=== PATIENT | male | born 1975 | race Hispanic/Latino ===

== ENCOUNTER 2017-10-31 13:42 | Inpatient (IN) | payer OTHER ==
[2017-10-31] MEDS ORDERED: Albuterol-Ipratrop 3 mg / 0.5 (3 ml) UD INH STA (14:55)
--- NOTE | 2017-10-31 14:55 | RAD ---
PROCEDURE: CHEST RADIOGRAPH, 1 VIEW HISTORY: dyspnea COMPARISON: None available. FINDINGS: LUNGS: Clear. PLEURA: No pneumothorax or pleural fluid seen. CARDIOVASCULAR: Normal. OSSEOUS STRUCTURES: No significant abnormalities. VISUALIZED UPPER ABDOMEN: Normal. OTHER FINDINGS: None. IMPRESSION: No active disease.
[2017-10-31 14:56] LABS: BASO # 0.1 K/uL (0.0-0.2); BASO % 1.3 % (0.0-2.0); EOS # 0.1 K/uL (0.0-0.7); EOS % 0.9 % (0.0-4.0); HEMATOCRIT 48.1 % (35.0-51.0); LYMPH # 2.1 K/uL (1.0-4.3); LYMPH % 31.6 % (20.0-40.0); MEAN CELL VOLUME 99.4 fl (80.0-94.0); MEAN CORPUSCULAR HEMOGLOBIN 32.7 pg (27.0-31.0); MEAN CORPUSCULAR HGB CONC 32.9 g/dL (33.0-37.0); MEAN PLATELET VOLUME 9.6 fl (7.2-11.7); MONO # 0.4 K/uL (0.0-0.8); MONO % 6.8 % (0.0-10.0); NEUT # 3.9 K/uL (1.8-7.0); NEUT % 59.4 % (50.0-75.0); NRBC % 0.1 % (0.0-0.0); RED CELL DISTRIBUTION WIDTH 15.8 % (11.5-14.5); WHITE BLOOD COUNT 6.5 K/uL (4.8-10.8)
[2017-10-31 14:57] LABS: ABG ALLEN TEST YES; ARTERIAL BLOOD GAS HCO3 28.7 mmol/L (21-28); ARTERIAL BLOOD GAS O2 CAPACITY 21.1 mL/dL (16-24); ARTERIAL BLOOD GAS O2 CONTENT 15.6 ML/dL (15-23); ARTERIAL BLOOD GAS PH 7.39 (7.35-7.45); ARTERIAL BLOOD GAS PO2 36 mm/Hg (80-100); ARTERIAL BLOOD HGB O2 SAT 70.3 % (95.0-98.0); CARBOXYHEMOGLOBIN 2.1 % (0.5-1.5); HHB 24.8 % (0.0-5.0); METHEMOGLOBIN 2.9 % (0.0-3.0)
--- NOTE | 2017-10-31 14:59 | ED PDOC ---
HPI: General Adult Time Seen by Provider: 10/31/17 14:05 Chief Complaint (Nursing): Shortness Of Breath Chief Complaint (Provider): Shortness Of Breath History Per: Patient, Family History/Exam Limitations: no limitations Onset/Duration Of Symptoms: Other (x months) Current Symptoms Are (Timing): Still Present Additional Complaint(s): Kaden is a 42 year old male with a past medical history of down syndrome, who is accompanied by father, who presents to the emergency department complaining of sleeping problems for several months. Patient states he snores loudly as well as difficulty breathing. Reports sleeping at night as well as morning. Reports sore throat and left ear pain (onset unclear). Denies chest pain, cough, fever and neck pain. Reports no vomiting or diarrhea, and is able to eat and drink as well as doing daily activities. PMD: Clive Sanchez Past Medical History Reviewed: Historical Data, Nursing Documentation, Vital Signs Vital Signs: Last Vital Signs Temp 97.9 F 11/02/17 08:26 Pulse 84 11/02/17 08:26 Resp 20 11/02/17 08:26 BP 113/72 11/02/17 08:26 Pulse Ox 95 11/02/17 08:26 - Medical History PMH: Anemia, Hypercholesterolemia, Hyperthyroidism Other PMH: Down syndrome - Surgical History Surgical History: No Surg Hx - Family History Family History: States: No Known Family Hx - Social History Current smoker - smoking cessation education provided: No Alcohol: None - Home Medications Home Medications: Ambulatory Orders Medication Instructions Recorded Atorvastatin [Lipitor] 10 mg PO DAILY 10/31/17 Fenofibrate,Micronized 134 mg PO DAILY 10/31/17 [Fenofibrate] Icosapent Ethyl [Vascepa] 2 gm PO DAILY 10/31/17 Levothyroxine [Synthroid] 175 mcg PO DAILY 10/31/17 - Allergies Allergies/Adverse Reactions: Allergies Allergy/AdvReac Type Severity Reaction Status Date / Time No Known Allergies Allergy Verified 10/31/17 13:53 Review of Systems ROS Statement: Except As Marked, All Systems Reviewed And Found Negative Constitutional: Negative for: Fever ENT: Positive for: Ear Pain (Left), Throat Pain Cardiovascular: Negative for: Chest Pain Respiratory: Negative for: Cough Musculoskeletal: Negative for: Neck Pain Physical Exam - Reviewed Nursing Documentation Reviewed: Yes Vital Signs Reviewed: Yes - Physical Exam Appears: Positive for: No Acute Distress Head Exam: Positive for: ATRAUMATIC, NORMOCEPHALIC Skin: Positive for: Warm, Dry Eye Exam: Positive for: Normal appearance, EOMI ENT: Positive for: Pharyngeal Erythema, Other (Long tongue noted) Neck: Positive for: Painless ROM, Supple Cardiovascular/Chest: Positive for: Regular Rate, Rhythm. Negative for: Tachycardia Respiratory: Positive for: Normal Breath Sounds. Negative for: Accessory Muscle Use, Respiratory Distress Gastrointestinal/Abdominal: Positive for: Soft. Negative for: Tenderness Extremity: Positive for: Normal ROM Neurologic/Psych: Positive for: Alert, Oriented - Laboratory Results Result Diagrams: 11/02/17 04:20 11/02/17 04:20 - ECG O2 Sat by Pulse Oximetry: 92 Medical Decision Making Medical Decision Making: Time: 14:37 Impression: COPD and sleep apnea r/o CHF Plan: - Arterial Blood Gas - EKG - B-Type Natriuretic Peptide - BMP - Troponin I - CBC - Chest X-Ray - Rapid Strep Time: 14:54 Chest X-Ray FINDINGS: LUNGS: Clear. PLEURA: No pneumothorax or pleural fluid seen. CARDIOVASCULAR: Normal. OSSEOUS STRUCTURES: No significant abnormalities. VISUALIZED UPPER ABDOMEN: Normal. OTHER FINDINGS: None. IMPRESSION: No active disease. Time: 15:00 Patient to be signed out to Dr. Holley Scribe Attestation: Documented by Dante Moncada, acting as a scribe for Chris Tejeda MD. Provider Scribe Attestation: All medical record entries made by the Scribe were at my direction and personally dictated by me. I have reviewed the chart and agree that the record accurately reflects my personal performance of the history, physical exam, medical decision making, and the department course for this patient. I have also personally directed, reviewed, and agree with the discharge instructions and disposition. Disposition - Clinical Impression Clinical Impression: COPD (chronic obstructive pulmonary disease), RHYS (obstructive sleep apnea) - Patient ED Disposition Is Patient to be Admitted: Transfer of Care Counseled Patient/Family Regarding: Studies Performed, Diagnosis - Disposition Disposition: Transfer of Care Disposition Time: 15:00 Condition: FAIR Patient Signed Over To: Joaquin Holley
[2017-10-31 15:01] LABS: CALCIUM 8.9 mg/dL (8.4-10.2); CARBON DIOXIDE 25 mmol/L (22-30); CHLORIDE 103 mmol/L (98-107); GFR AFRICAN-AMERICAN > 60; GLUCOSE,RANDOM 74 mg/dL (75-110); SODIUM 139 mmol/l (132-148)
[2017-10-31] MEDS ORDERED: Albuterol-Ipratrop 3 mg / 0.5 (3 ml) UD ONE (15:11)
--- NOTE | 2017-10-31 15:19 | ED PDOC ---
- Laboratory Results Result Diagrams: 10/31/17 14:47 10/31/17 14:47 - ECG O2 Sat by Pulse Oximetry: 92 (RA) Medical Decision Making Medical Decision Making: Time: 15:00 Patient signed out to me by Dr. Tejeda, pending re-evaluation. Disposition - Clinical Impression Clinical Impression: COPD (chronic obstructive pulmonary disease) - POA Present On Arrival: None - Disposition Disposition: Hospitalized as Observation Patient Disposition Time: 15:56 Condition: FAIR Forms: [employer] (Lao)
[2017-10-31 15:20] LABS: BLOOD UREA NITROGEN 19 mg/dl (9-20)
[2017-10-31 15:21] LABS: POTASSIUM 5.9 MMOL/L (3.6-5.0)
[2017-10-31 15:41] LABS: ABG ALLEN TEST YES; ARTERIAL BLOOD GAS O2 CAPACITY 20.8 mL/dL (16-24); ARTERIAL BLOOD GAS O2 CONTENT 20.7 ML/dL (15-23); ARTERIAL BLOOD GAS PH 7.39 (7.35-7.45); ARTERIAL BLOOD GAS PO2 77 mm/Hg (80-100); ARTERIAL BLOOD HGB O2 SAT 94.2 % (95.0-98.0); CARBOXYHEMOGLOBIN 3.2 % (0.5-1.5); HHB 0.7 % (0.0-5.0); METHEMOGLOBIN 1.9 % (0.0-3.0)
[2017-10-31 16:21] LABS: ALB/GLOB RATIO 1.3 (1.0-2.1); ALKALINE PHOSPHATASE 59 U/L (38-126); ALT/SGPT 58 U/L (21-72); AST/SGOT 81 U/L (17-59); BILIRUBIN,TOTAL 0.4 mg/dl (0.2-1.3); BLOOD UREA NITROGEN 18 mg/dl (9-20); CALCIUM 8.7 mg/dL (8.4-10.2); CARBON DIOXIDE 30 mmol/L (22-30); CHLORIDE 102 mmol/L (98-107); GFR AFRICAN-AMERICAN > 60; GLUCOSE,RANDOM 83 mg/dL (75-110); POTASSIUM 4.3 MMOL/L (3.6-5.0); SODIUM 140 mmol/l (132-148); TOTAL PROTEIN 7.7 G/DL (6.3-8.2)
[2017-10-31] MEDS ORDERED: Albuterol-Ipratrop 3 mg / 0.5 (3 ml) UD INH PRN (21:03)
[2017-11-01] MEDS: Albuterol-Ipratrop 3 mg / 0.5 (3 ml) UD INH SCH ×4 (01:03→19:30)
[2017-11-01] MEDS ORDERED: Lactulose 10 gm/15 ml Syrup PO PRN (05:15)
[2017-11-01 06:09] LABS: HEMATOCRIT 44.4 % (35.0-51.0); MEAN CELL VOLUME 99.4 fl (80.0-94.0); MEAN CORPUSCULAR HGB CONC 33.2 g/dL (33.0-37.0); RED CELL DISTRIBUTION WIDTH 15.8 % (11.5-14.5); WHITE BLOOD COUNT 12.8 K/uL (4.8-10.8)
[2017-11-01 06:14] LABS: ALB/GLOB RATIO 1.3 (1.0-2.1); ALKALINE PHOSPHATASE 57 U/L (38-126); ALT/SGPT 57 U/L (21-72); AST/SGOT 83 U/L (17-59); BILIRUBIN,TOTAL 0.5 mg/dl (0.2-1.3); BLOOD UREA NITROGEN 17 mg/dl (9-20); CALCIUM 9.2 mg/dL (8.4-10.2); CARBON DIOXIDE 27 mmol/L (22-30); CHLORIDE 105 mmol/L (98-107); CHOLESTEROL 277 mg/dL (0-199); GFR AFRICAN-AMERICAN > 60; GLUCOSE,RANDOM 101 mg/dL (75-110); POTASSIUM 4.1 MMOL/L (3.6-5.0); SODIUM 134 mmol/l (132-148); TOTAL PROTEIN 8.1 G/DL (6.3-8.2)
[2017-11-01] MEDS ORDERED: Levothyroxine 175 MCG TAB PO SCH (06:30)
--- NOTE | 2017-11-01 08:04 | CT ---
PROCEDURE: CT NECK WITHOUT CONTRAST HISTORY: snoring obstruction? COMPARISON: None. TECHNIQUE: CT of the neck without intravenous contrast. Coronal and sagittal reformats generated. Radiation dose: DLP mGy-cm This CT exam was performed using one or more of the following dose reduction techniques: Automated exposure control, adjustment of the mA and/or kV according to patient size, and/or use of iterative reconstruction technique. FINDINGS: NASOPHARYNX: Soft tissue swelling, fullness within the nasopharynx. SUPRAHYOID NECK: Oral pharyngeal soft tissue swelling, edema producing narrowing of the oropharynx this is primarily related to edema about the soft palate INFRAHYOID NECK: Unremarkable larynx, hypopharynx, and supraglottic space. Vocal cords intact. MASS: None. GLANDS: Parotid and submandibular glands unremarkable. Normal size thyroid gland, without nodule. LYMPH NODES: Enlarged cervical and submandibular lymph nodes the etiology of which is uncertain, the preponderance of lymph nodes measure 1 cm or less. CERVICAL SPINE: Proliferative hypertrophic bar formation producing canal stenosis C4-5 and to lesser extent C5-6 OTHER FINDINGS: Dilatation of the proximal esophagus as visualized etiology of which is uncertain. IMPRESSION: Nasopharyngeal, oropharyngeal narrowing, soft tissue swelling which is diffuse.
[2017-11-01] MEDS: Enoxaparin 40 mg Syringe SC SCH (09:13)
[2017-11-01] MEDS ORDERED: methylPREDNISolone 60 MG in Sodium Chloride 0.9% 50 ML IV SCH (10:00)
[2017-11-01] MEDS: Omega-3-Acid Ethyl Esters 1 GM Cap PO SCH (12:43)
--- NOTE | 2017-11-01 15:20 | HP ---
CHIEF COMPLAINT: Shortness of breath and grunting noise from the nose. HISTORY OF PRESENT ILLNESS: This is a 42-year-old male, known case of Down syndrome, who was having sleeping problem and also having shortness of breath and family also complaining of very loud snoring. So, the patient was brought to the emergency room and was admitted for further management. REVIEW OF SYSTEMS: Positive for sore throat, ear pain, shortness of breath, and snoring. Review of systems otherwise is negative for headache, dizziness, syncope, loss of consciousness, chest pain, nausea, vomiting, diarrhea, constipation, or any new joint of extremity pain. Review of systems of all other organ systems is unremarkable. PAST MEDICAL HISTORY: Significant for Down syndrome, elevated cholesterol, anemia, hypothyroidism, morbid obesity. PAST SURGICAL HISTORY: Unremarkable. PERSONAL HISTORY: The patient is currently nonsmoker, nondrinker. No substance abuse. MEDICATIONS: The patient is not on any medications. ALLERGIES: THE PATIENT IS NOT ALLERGIC TO ANY MEDICATIONS. FAMILY HISTORY: Noncontributory. PHYSICAL EXAMINATION: GENERAL: Well-built, well-nourished, morbidly obese 42-year-old male, in no acute distress. VITAL SIGNS: Temperature , pulse 82, respirations 18, blood pressure 105/55, and saturation 94%. HEENT: Pupils reacting to light. No JVD. No thyromegaly. No lymphadenopathy. No nystagmus. Normocephalic, atraumatic skull. HEART: S1 and S2, normal and regular. No significant murmur, gallop, or rub is heard. LUNGS: Exam shows good bilateral air exchange. No rales or rhonchi, but the patient does have prolonged expirations. ABDOMEN: Soft, nontender. No organomegaly. No fluid. Bowel sounds are positive. EXTREMITIES: No edema. No calf swelling. No tenderness. No acute ischemia. CENTRAL NERVOUS SYSTEM: Essentially unchanged and there is no sign of any acute gross focal motor or sensory neurological deficits. DIAGNOSTIC DATA: Available diagnostic data reviewed. WBC 12.8, hemoglobin 14.7, hematocrit 44, platelet 266. ABG shows pH 7.39, pCO2 of 50, pO2 of 77, saturation 99.3%. On admission, the patient's ABG showed pH 7.39, pCO2 of 54, pO2 of 36, saturation was 74%. Sodium 134, potassium 4.1, chloride 95, bicarb 27, BUN 17, and creatinine 1.1. SMA-12 is unremarkable. The patient's cholesterol is 277 with LDL cholesterol of 171. Also, the patient's TSH is 83.10. ADMITTING IMPRESSION: Chronic obstructive pulmonary disease with exacerbation; morbid obesity; obesity-hypoventilation syndrome; sleep apnea; hypothyroidism, uncontrolled; elevated cholesterol. Telemetry monitoring does not reveal significant arrhythmias. PLAN: As ordered. Tanner Rodriguez MD
[2017-11-02] MEDS: Albuterol-Ipratrop 3 mg / 0.5 (3 ml) UD INH SCH ×4 (01:14→19:42)
[2017-11-02 05:49] LABS: HEMATOCRIT 44.4 % (35.0-51.0); MEAN CELL VOLUME 99.2 fl (80.0-94.0); MEAN CORPUSCULAR HEMOGLOBIN 32.8 pg (27.0-31.0); MEAN CORPUSCULAR HGB CONC 33.1 g/dL (33.0-37.0); RED CELL DISTRIBUTION WIDTH 15.5 % (11.5-14.5); WHITE BLOOD COUNT 12.8 K/uL (4.8-10.8)
[2017-11-02 06:24] LABS: ALB/GLOB RATIO 1.4 (1.0-2.1); ALKALINE PHOSPHATASE 58 U/L (38-126); ALT/SGPT 74 U/L (21-72); AST/SGOT 116 U/L (17-59); BILIRUBIN,TOTAL 0.5 mg/dl (0.2-1.3); BLOOD UREA NITROGEN 23 mg/dl (9-20); CALCIUM 9.5 mg/dL (8.4-10.2); CARBON DIOXIDE 31 mmol/L (22-30); CHLORIDE 99 mmol/L (98-107); GFR AFRICAN-AMERICAN > 60; GLUCOSE,RANDOM 118 mg/dL (75-110); POTASSIUM 4.3 MMOL/L (3.6-5.0); SODIUM 141 mmol/l (132-148); TOTAL PROTEIN 8.6 G/DL (6.3-8.2)
[2017-11-02] MEDS ORDERED: Levothyroxine 25 MCG TAB PO SCH (06:30)
[2017-11-02] MEDS: Levothyroxine 200 MCG TAB PO SCH (08:30)
[2017-11-02] MEDS: Enoxaparin 40 mg Syringe SC SCH (08:30)
[2017-11-02] MEDS: Omega-3-Acid Ethyl Esters 1 GM Cap PO SCH (08:31)
--- NOTE | 2017-11-02 10:55 | CP.PCM.PN ---
Subjective - Date & Time of Evaluation Date of Evaluation: 11/02/17 Time of Evaluation: 07:40 - Subjective Subjective: Patient seen and examined bedside with Dr Rodriguez. Patient with down syndrome, noticed with some nasal obstruction. no wheezing , SOB. no overnight events. ENT consult placed to evaluate Upper respiratory symptoms. Objective - Vital Signs/Intake and Output Vital Signs (last 24 hours): Temp Pulse Resp BP Pulse Ox 97.9 F 84 20 113/72 92 L 11/02/17 08:26 11/02/17 09:00 11/02/17 08:26 11/02/17 08:26 11/02/17 09:21 - Medications Medications: Current Medications Albuterol/Ipratropium (Duoneb 3 Mg/0.5 Mg (3 Ml) Ud) 3 ml INH RQ6 MELISSA Last Admin: 11/02/17 07:58 Dose: 3 ml Albuterol/Ipratropium (Duoneb 3 Mg/0.5 Mg (3 Ml) Ud) 3 ml INH RQ4 PRN PRN Reason: Shortness of Breath Last Admin: 10/31/17 22:05 Dose: 3 ml Atorvastatin Calcium (Lipitor) 10 mg PO DAILY [facility] Last Admin: 11/02/17 08:30 Dose: 10 mg Enoxaparin Sodium (Lovenox) 40 mg SC DAILY MELISSA PRN Reason: Protocol Last Admin: 11/02/17 08:30 Dose: 40 mg Fenofibrate (Tricor) 145 mg PO DAILY MELISSA Last Admin: 11/02/17 08:31 Dose: 145 mg Lactulose (Enulose) 10 gm PO DAILY PRN PRN Reason: Constipation Levothyroxine Sodium (Synthroid) 200 mcg PO DAILY MELISSA Last Admin: 11/02/17 08:30 Dose: 200 mcg Liothyronine Sodium (Cytomel) 5 mcg PO DAILY MELISSA Last Admin: 11/02/17 08:34 Dose: 5 mcg Methylprednisolone (Solu-Medrol) 60 mg IV Q6 MELISSA Last Admin: 11/02/17 09:11 Dose: 60 mg [id number]-[id number] Ethyl Esters (Lovaza) 2 gm PO DAILY MELISSA Last Admin: 11/02/17 08:31 Dose: 2 gm - Labs Labs: 11/02/17 04:20 11/02/17 04:20 - Constitutional Appears: Non-toxic, No Acute Distress - Head Exam Head Exam: ATRAUMATIC, NORMOCEPHALIC - Eye Exam Eye Exam: Normal appearance - ENT Exam ENT Exam: Mucous Membranes Moist, Normal Oropharynx - Neck Exam Neck Exam: Normal Inspection - Respiratory Exam Respiratory Exam: Decreased Breath Sounds (B/L bibasal). absent: Rales, Wheezes - Cardiovascular Exam Cardiovascular Exam: REGULAR RHYTHM, +S1, +S2 - GI/Abdominal Exam GI & Abdominal Exam: Soft, Normal Bowel Sounds. absent: Tenderness - Extremities Exam Extremities Exam: Normal Inspection. absent: Calf Tenderness, Pedal Edema - Neurological Exam Neurological Exam: Alert, Awake - Psychiatric Exam Psychiatric exam: Normal Affect Assessment and Plan - Assessment and Plan (Free Text) Plan: Assessment/Plan 1) COPD -duoneb -solumedrol 40 mg IV q8h 2) RHYS -snoring,down syndrome neck -ENT consult suggested 3) Hypothyroidism -uncontrolled -levothyroxine 200 mcg daily 4) DVT Prophylaxis -lovenox 40 mg sc daily
[2017-11-02] MEDS ORDERED: Piperacillin/Tazobact 3.375 GM in Sodium Chloride 0.9% 100 ML IVPB SCH (12:00)
[2017-11-02] MEDS: MethylPREDNISolone 40 mg Vial IV SCH (17:51)
--- NOTE | 2017-11-02 19:29 | OP ---
PROCEDURE DATE: 11/02/2017 PREOPERATIVE DIAGNOSIS: Possible airway obstruction. POSTOPERATIVE DIAGNOSIS: Possible airway obstruction. PROCEDURE: Flexible laryngoscopy. SIGNIFICANT FINDINGS: No masses, no lesions, no erythema, no edema. DESCRIPTION OF PROCEDURE: Patient was placed in seated position. The nose was injected using Afrin. Flexible laryngoscope was inserted into the nasal cavity, past the nasopharynx, oropharynx, and hypopharynx. The pharyngeal wall, base of tongue, vallecula, epiglottis, AE fold, false cords, true cords, arytenoids, and pyriform sinuses were brought into view. No masses, no lesions, no erythema, no edema were noted. Redundant pharyngeal mucosa was noted. The scope was removed. Patient tolerated the procedure well. Baljit Hendrickson MD
[2017-11-03] MEDS: Albuterol-Ipratrop 3 mg / 0.5 (3 ml) UD INH SCH ×4 (01:04→19:43)
[2017-11-03] MEDS: MethylPREDNISolone 40 mg Vial IV SCH ×3 (01:45→17:26)
[2017-11-03 05:55] LABS: HEMATOCRIT 45.5 % (35.0-51.0); MEAN CELL VOLUME 98.9 fl (80.0-94.0); MEAN CORPUSCULAR HEMOGLOBIN 32.7 pg (27.0-31.0); MEAN CORPUSCULAR HGB CONC 33.1 g/dL (33.0-37.0); RED CELL DISTRIBUTION WIDTH 15.5 % (11.5-14.5); WHITE BLOOD COUNT 16.7 K/uL (4.8-10.8)
[2017-11-03 06:07] LABS: BLOOD UREA NITROGEN 27 mg/dl (9-20); CALCIUM 9.7 mg/dL (8.4-10.2); CARBON DIOXIDE 33 mmol/L (22-30); CHLORIDE 96 mmol/L (98-107); GFR AFRICAN-AMERICAN > 60; GLUCOSE,RANDOM 107 mg/dL (75-110); POTASSIUM 4.3 MMOL/L (3.6-5.0); SODIUM 140 mmol/l (132-148)
[2017-11-03] MEDS: Enoxaparin 40 mg Syringe SC SCH (08:57)
--- NOTE | 2017-11-03 08:59 | CP.PCM.PN ---
Subjective - Date & Time of Evaluation Date of Evaluation: 11/03/17 Time of Evaluation: 07:30 - Subjective Subjective: Patient seen and examined bedside with Dr Rodriguez. Patient with down syndrome, more improved of nasal congestion today. no wheezing appreciated, breathing w/o difficulty. no overnight events. ENT cleared pt. steroid reduced dose. possible discharged tomorrow. Objective - Vital Signs/Intake and Output Vital Signs (last 24 hours): Temp Pulse Resp BP Pulse Ox 98.1 F 83 18 108/69 93 L 11/03/17 08:00 11/03/17 08:00 11/03/17 08:00 11/03/17 08:00 11/03/17 08:00 Intake and Output: 11/03/17 11/03/17 06:59 18:59 Intake Total 1500 Balance 1500 - Medications Medications: Current Medications Albuterol/Ipratropium (Duoneb 3 Mg/0.5 Mg (3 Ml) Ud) 3 ml INH RQ6 MELISSA Last Admin: 11/03/17 07:56 Dose: 3 ml Albuterol/Ipratropium (Duoneb 3 Mg/0.5 Mg (3 Ml) Ud) 3 ml INH RQ4 PRN PRN Reason: Shortness of Breath Last Admin: 10/31/17 22:05 Dose: 3 ml Atorvastatin Calcium (Lipitor) 10 mg PO DAILY [facility] Last Admin: 11/02/17 08:30 Dose: 10 mg Enoxaparin Sodium (Lovenox) 40 mg SC DAILY MELISSA PRN Reason: Protocol Last Admin: 11/02/17 08:30 Dose: 40 mg Fenofibrate (Tricor) 145 mg PO DAILY MELISSA Last Admin: 11/02/17 08:31 Dose: 145 mg Lactulose (Enulose) 10 gm PO DAILY PRN PRN Reason: Constipation Levothyroxine Sodium (Synthroid) 200 mcg PO DAILY MELISSA Last Admin: 11/02/17 08:30 Dose: 200 mcg Liothyronine Sodium (Cytomel) 5 mcg PO DAILY MELISSA Last Admin: 11/02/17 08:34 Dose: 5 mcg Methylprednisolone (Solu-Medrol) 40 mg IV Q8 MELISSA Last Admin: 11/03/17 01:45 Dose: 40 mg Yjpza-6-Jdwf Ethyl Esters (Lovaza) 2 gm PO DAILY MELISSA Last Admin: 11/02/17 08:31 Dose: 2 gm - Labs Labs: 11/03/17 05:00 11/03/17 05:00 - Constitutional Appears: Non-toxic, No Acute Distress - Head Exam Head Exam: ATRAUMATIC, NORMOCEPHALIC - Eye Exam Eye Exam: Normal appearance - ENT Exam ENT Exam: Mucous Membranes Moist Additional comments: B/L ears with cerumen and partial cerumen impaction, no auditive conduct normal , TM not completed seen but with normal color and light reflex - Neck Exam Neck Exam: Full ROM, Normal Inspection - Respiratory Exam Respiratory Exam: Clear to Ausculation Bilateral. absent: Rales, Rhonchi, Wheezes - Cardiovascular Exam Cardiovascular Exam: REGULAR RHYTHM, +S1, +S2 - GI/Abdominal Exam GI & Abdominal Exam: Soft, Normal Bowel Sounds. absent: Tenderness - Extremities Exam Extremities Exam: Normal Inspection. absent: Pedal Edema - Neurological Exam Neurological Exam: Alert, Awake - Psychiatric Exam Psychiatric exam: Normal Affect - Skin Skin Exam: Intact Assessment and Plan - Assessment and Plan (Free Text) Plan: Assessment/Plan 1) COPD -duoneb -solumedrol reduced dose 20 mg IV q8h -reducing dose and possible dc tomorrow 2) RHYS -snoring,down syndrome neck -ENT consult appreciated. pt cleared 3) Hypothyroidism -uncontrolled -levothyroxine 200 mcg daily 4) DVT Prophylaxis -lovenox 40 mg sc daily
[2017-11-03] MEDS: Omega-3-Acid Ethyl Esters 1 GM Cap PO SCH (09:02)
[2017-11-03] MEDS: Levothyroxine 200 MCG TAB PO SCH (09:11)
--- NOTE | 2017-11-03 09:17 | CARD ---
APPROVED REPORT EKG Measurement Heart [id number] <Conclusion> Normal sinus rhythm Possible Left atrial enlargement Borderline ECG
[2017-11-03] MEDS: Petrolatum UD PAK TOP SCH ×3 (17:27→22:38)
[2017-11-04] MEDS: MethylPREDNISolone 40 mg Vial IV SCH ×2 (00:17→09:36)
[2017-11-04 00:23] VITALS: RESP 18
[2017-11-04] MEDS: Albuterol-Ipratrop 3 mg / 0.5 (3 ml) UD INH SCH ×2 (01:37→07:54)
[2017-11-04 06:51] LABS: HEMATOCRIT 48.7 % (35.0-51.0); MEAN CELL VOLUME 98.7 fl (80.0-94.0); MEAN CORPUSCULAR HEMOGLOBIN 32.8 pg (27.0-31.0); MEAN CORPUSCULAR HGB CONC 33.2 g/dL (33.0-37.0); RED CELL DISTRIBUTION WIDTH 15.4 % (11.5-14.5); WHITE BLOOD COUNT 20.1 K/uL (4.8-10.8)
[2017-11-04 06:58] LABS: BLOOD UREA NITROGEN 29 mg/dl (9-20); CALCIUM 9.6 mg/dL (8.4-10.2); CARBON DIOXIDE 32 mmol/L (22-30); CHLORIDE 97 mmol/L (98-107); GFR AFRICAN-AMERICAN > 60; GLUCOSE,RANDOM 107 mg/dL (75-110); POTASSIUM 4.7 MMOL/L (3.6-5.0); SODIUM 140 mmol/l (132-148)
[2017-11-04 08:14] VITALS: BP 112/73; PULSE 80; TEMP 98.4; O2SAT 93
[2017-11-04] MEDS: Omega-3-Acid Ethyl Esters 1 GM Cap PO SCH (09:28)
[2017-11-04] MEDS: Enoxaparin 40 mg Syringe SC SCH (09:29)
[2017-11-04] MEDS: Levothyroxine 200 MCG TAB PO SCH (09:29)
[2017-11-04] MEDS: Petrolatum UD PAK TOP SCH (09:30)
--- NOTE | 2017-11-04 13:18 | CP.PCM.DIS ---
Provider - Provider Date of Admission: 11/02/17 14:23 Attending physician: Tanner Rodriguez MD Time Spent in preparation of Discharge (in minutes): 30 Hospital Course - Lab Results Lab Results: Micro Results 10/31/17 14:57 Throat Group A Strep Throat Culture - Final NO BETA STREP GROUP A ISOLATED. Most Recent Lab Values WBC 20.1 K/uL (4.8-10.8) H 11/04/17 05:50 RBC 4.93 Mil/uL (4.40-5.90) 11/04/17 05:50 Hgb 16.2 g/dL (12.0-18.0) 11/04/17 05:50 Hct 48.7 % (35.0-51.0) 11/04/17 05:50 MCV 98.7 fl (80.0-94.0) H 11/04/17 05:50 MCH 32.8 pg (27.0-31.0) H 11/04/17 05:50 MCHC 33.2 g/dL (33.0-37.0) 11/04/17 05:50 RDW 15.4 % (11.5-14.5) H 11/04/17 05:50 Plt Count 296 K/uL (130-400) 11/04/17 05:50 MPV 9.6 fl (7.2-11.7) 10/31/17 14:47 Neut % (Auto) 59.4 % (50.0-75.0) 10/31/17 14:47 Lymph % (Auto) 31.6 % (20.0-40.0) 10/31/17 14:47 Barrow % (Auto) 6.8 % (0.0-10.0) 10/31/17 14:47 Eos % (Auto) 0.9 % (0.0-4.0) 10/31/17 14:47 Baso % (Auto) 1.3 % (0.0-2.0) 10/31/17 14:47 Neut # 3.9 K/uL (1.8-7.0) 10/31/17 14:47 Lymph # 2.1 K/uL (1.0-4.3) 10/31/17 14:47 Barrow # 0.4 K/uL (0.0-0.8) 10/31/17 14:47 Eos # 0.1 K/uL (0.0-0.7) 10/31/17 14:47 Baso # 0.1 K/uL (0.0-0.2) 10/31/17 14:47 pCO2 50 mm/Hg (35-45) H 10/31/17 15:15 pO2 77 mm/Hg (80-100) L 10/31/17 15:15 HCO3 28.0 mmol/L (21-28) 10/31/17 15:15 ABG pH 7.39 (7.35-7.45) 10/31/17 15:15 ABG Total CO2 31.8 mmol/L (22-28) H 10/31/17 15:15 ABG O2 Saturation 99.3 % (95-98) H 10/31/17 15:15 ABG O2 Content 20.7 ML/dL (15-23) 10/31/17 15:15 ABG Base Excess 4.1 mmol/L (-2.0-3.0) H 10/31/17 15:15 ABG Hemoglobin 15.6 g/dL (11.7-17.4) 10/31/17 15:15 ABG Carboxyhemoglobin 3.2 % (0.5-1.5) H 10/31/17 15:15 POC ABG HHb (Measured) 0.7 % (0.0-5.0) 10/31/17 15:15 ABG Methemoglobin 1.9 % (0.0-3.0) 10/31/17 15:15 ABG O2 Capacity 20.8 mL/dL (16-24) 10/31/17 15:15 Murray Test Yes 10/31/17 15:15 A-a O2 Difference 60.0 mm/Hg 10/31/17 15:15 Hgb O2 Saturation 94.2 % (95.0-98.0) L 10/31/17 15:15 FiO2 28.0 % 10/31/17 15:15 Blood Gas Comments 2l/m nc.rr 10/31/17 15:15 Crit Value Called To Dr kyle taylor 10/31/17 14:48 Crit Value Called By Shahana 10/31/17 14:48 Crit Value Read Back Y 10/31/17 14:48 Blood Gas Notified Time 1457 10/31/17 14:48 Sodium 140 mmol/l (132-148) 11/04/17 05:50 Potassium 4.7 MMOL/L (3.6-5.0) 11/04/17 05:50 Chloride 97 mmol/L (98-107) L 11/04/17 05:50 Carbon Dioxide 32 mmol/L (22-30) H 11/04/17 05:50 Anion Gap 16 (10-20) 11/04/17 05:50 BUN 29 mg/dl (9-20) H 11/04/17 05:50 Creatinine 1.1 mg/dl (0.8-1.5) 11/04/17 05:50 Est GFR ( Amer) > 60 11/04/17 05:50 Est GFR (Non-Af Amer) > 60 11/04/17 05:50 Random Glucose 107 mg/dL (75-110) 11/04/17 05:50 Calcium 9.6 mg/dL (8.4-10.2) 11/04/17 05:50 Total Bilirubin 0.5 mg/dl (0.2-1.3) 11/02/17 04:20 AST 116 U/L (17-59) H D 11/02/17 04:20 ALT 74 U/L (21-72) H D 11/02/17 04:20 Alkaline Phosphatase 58 U/L (38-126) 11/02/17 04:20 Troponin I < 0.0120 ng/mL (0.00-0.120) 10/31/17 14:47 NT-Pro-B Natriuret Pep 47.4 pg/ml (0-450) 10/31/17 14:47 Total Protein 8.6 G/DL (6.3-8.2) H 11/02/17 04:20 Albumin 5.0 g/dL (3.5-5.0) 11/02/17 04:20 Globulin 3.7 gm/dL (2.2-3.9) 11/02/17 04:20 Albumin/Globulin Ratio 1.4 (1.0-2.1) 11/02/17 04:20 Triglycerides 97 mg/DL (0-149) 11/01/17 05:57 Cholesterol 277 mg/dL (0-199) H 11/01/17 05:57 LDL Cholesterol Direct 171 mg/dL (0-129) H 11/01/17 05:57 HDL Cholesterol 80 MG/DL (30-70) H 11/01/17 05:57 Vitamin B12 594 pg/mL (239-931) 11/01/17 05:57 Thyroxine (T4) 0.580 ug/dl (5.5-11.0) L 11/01/17 05:57 Total T3 1.78 nmol/L (1.49-2.60) 11/01/17 05:57 TSH 3rd Generation 83.10 mIU/ML (0.46-4.68) H 11/01/17 05:57 Grp A Beta Strep Ag Negative (NEGATIVE) 10/31/17 14:57 - Hospital Course Hospital Course: Kaden is a 42 year old male with a past medical history of down syndrome, who is accompanied by father, who presents to the emergency department complaining of sleeping problems for several months. Patient states he snores loudly as well as difficulty breathing. Reports sleeping at night as well as morning. Reports sore throat and left ear pain (onset unclear). Denies chest pain, cough, fever and neck pain. Reports no vomiting or diarrhea, and is able to eat and drink as well as doing daily activities. Patient admitted for COPD exacerbation, RHYS. During hospitalization patient noticed with upper respiratory symptoms nasal congestion, left ear pain and snoring. patient evaluated by ENT, and no abnormalities were found. Patient cleared to be discharged, patient medically clear and will be discharged with Medrol dose pack 4 mg PO daily and f/u in 7 days with PMD. Patient will need sleep study outpatient Diagnosis Assessment/Plan 1) COPD exacerbation -resolved 2) RHYS -snoring,down syndrome neck -ENT consult appreciated. pt cleared 3) Hypothyroidism -uncontrolled -levothyroxine 200 mcg daily Discharge Exam - Head Exam Head Exam: ATRAUMATIC, NORMOCEPHALIC - Eye Exam Eye Exam: Normal appearance - ENT Exam Additional comments: B//L TM not well visualized due to partial cerumen impaction - Respiratory Exam Respiratory Exam: Clear to PA & Lateral. absent: Rales, Rhonchi - Cardiovascular Exam Cardiovascular Exam: REGULAR RHYTHM, +S1, +S2 - GI/Abdominal Exam GI & Abdominal Exam: Normal Bowel Sounds, Soft. absent: Guarding, Rebound, Tenderness - Extremities Exam Extremities exam: normal inspection - Neurological Exam Neurological exam: Alert, Oriented x3 - Psychiatric Exam Psychiatric exam: Normal Affect, Normal Mood - Skin Skin Exam: Intact Discharge Plan - Discharge Medications Prescriptions: Methylprednisolone [Medrol Dose Pack (21 tabs)] 4 mg PO DAILY #21 mg - Follow Up Plan Condition: FAIR Disposition: HOME/ ROUTINE Instructions: Methylprednisolone (By mouth), Sleep Apnea (DC), COPD (Chronic Obstructive Pulmonary Disease) (DC) Additional Instructions: script for [facility] for sleep study [phone] calderon in 7-10 days Referrals: Baljit Hendrickson MD [Staff Provider] - Clive Calderon MD [Family Provider] - Boubacar Fox MD [Staff Provider] -
== END 2017-11-04 11:30 | disposition home or self-care (01) | DRG 191 ==
LOC: H.ER 13:42 → H.ERHOLD 15:55 → H.TEL 18:37 → OBSVTOIN 11-02 14:23 → H.TEL 11-03 18:09
PROVIDERS: ADMIT Internal Medicine; ATTEND Internal Medicine
PROC: 0CJS8ZZ Inspection of Larynx, Via Natural or Artificial Opening Endoscopic (ICD-10-PCS; principal; 2017-11-02)
PROC: 3E0F73Z Introduction of Anti-inflammatory into Respiratory Tract, Via Natural or Artificial Opening (ICD-10-PCS; 2017-11-02)
DX: J44.1 Chronic obstructive pulmonary disease with (acute) exacerbation (principal); E66.2 Morbid (severe) obesity with alveolar hypoventilation; Q90.9 Down syndrome, unspecified; E03.9 Hypothyroidism, unspecified; E78.00 Pure hypercholesterolemia, unspecified; Z68.27 Body mass index [BMI] 27.0-27.9, adult

== ENCOUNTER 2018-04-23 15:28 | Observation (INO) | payer OTHER ==
[2018-04-23] MEDS ORDERED: Sodium Chloride 0.9% 1,000 ML IV STA ×2 (16:27→23:26)
[2018-04-23] MEDS ORDERED: Famotidine 20mg/50ml 20 MG/50 ML BAG IVPB ONE ×2 (16:32→16:45)
[2018-04-23 16:46] LABS: BASO % 0.3 % (0.0-2.0); HEMOGLOBIN 14.6 g/dL (12.0-18.0); LYMPH # 0.3 K/uL (1.0-4.3); MEAN CELL VOLUME 92.6 fl (80.0-94.0); MEAN CORPUSCULAR HEMOGLOBIN 31.1 pg (27.0-31.0); MEAN CORPUSCULAR HGB CONC 33.6 g/dL (33.0-37.0); MEAN PLATELET VOLUME 8.6 fl (7.2-11.7); MONO # 0.4 K/uL (0.0-0.8); MONO % 2.7 % (0.0-10.0); NEUT # 15.1 K/uL (1.8-7.0); PLATELET COUNT 257 K/uL (130-400); RBC 4.68 Mil/uL (4.40-5.90); RED CELL DISTRIBUTION WIDTH 14.6 % (11.5-14.5); WHITE BLOOD COUNT 15.9 K/uL (4.8-10.8)
--- NOTE | 2018-04-23 16:46 | ED PDOC ---
HPI: Abdomen Time Seen by Provider: 04/23/18 15:58 Chief Complaint (Nursing): Abdominal Pain Chief Complaint (Provider): Abdominal Pain History Per: Patient, Family (father) History/Exam Limitations: clinical condition (Down syndrome) Onset/Duration Of Symptoms: Days (yesterday afternoon) Current Symptoms Are (Timing): Still Present Location Of Pain/Discomfort: Epigastric Associated Symptoms: Nausea. denies: Vomiting Additional Complaint(s): 42 year old male, with a past medical history of down syndrome, presented to the ED complaining of abdominal pain and nausea since yesterday afternoon. Patient reports having abdominal discomfort in the epigastric area and feels nauseous but is not vomiting. Patient indicated he had an unknown amount of watery stool. He denied fever at home but he has a fever here in the ED. Patient has a partially limited history and has a history of down syndrome. Father states he can't provide a detailed history. Of note, pain had started yesterday but had felt better so patient had gone to sleep. Upon waking up this morning, he had more pain and was nauseous so he had gone to the urgent care clinic in [place] but was sent to the ED right away. PCP: Dr. Sanchez Past Medical History Reviewed: Historical Data, Nursing Documentation, Vital Signs Vital Signs: Last Vital Signs Temp 97.5 F L 04/24/18 12:36 Pulse 63 04/24/18 12:36 Resp 18 04/24/18 12:36 BP 117/64 04/24/18 13:25 Pulse Ox 97 04/24/18 12:36 - Medical History PMH: Anemia, Hypercholesterolemia, Hyperthyroidism, Hypothyroidism Denies: HIV, Chronic Kidney Disease Other PMH: Down syndrome - Surgical History Surgical History: No Surg Hx - Family History Family History: States: Unknown Family Hx - Social History Current smoker - smoking cessation education provided: No Alcohol: None Drugs: Denies - Home Medications Home Medications: Ambulatory Orders Medication Instructions Recorded Atorvastatin [Lipitor] 10 mg PO DAILY 10/31/17 Fenofibrate,Micronized 134 mg PO DAILY 10/31/17 [Fenofibrate] Icosapent Ethyl [Vascepa] 2 gm PO DAILY 10/31/17 Levothyroxine [Synthroid] 175 mcg PO DAILY 10/31/17 Ondansetron ODT [Zofran ODT] 4 mg PO Q8 PRN #12 odt 04/23/18 - Allergies Allergies/Adverse Reactions: Allergies Allergy/AdvReac Type Severity Reaction Status Date / Time No Known Allergies Allergy Verified 10/31/17 13:53 Review of Systems ROS Statement: Except As Marked, All Systems Reviewed And Found Negative Constitutional: Positive for: Fever Gastrointestinal: Positive for: Nausea, Abdominal Pain (epigastric area), Other (watery stools). Negative for: Vomiting Physical Exam - Reviewed Nursing Documentation Reviewed: Yes Vital Signs Reviewed: Yes - Physical Exam Appears: Positive for: Non-toxic, No Acute Distress Head Exam: Positive for: ATRAUMATIC, NORMAL INSPECTION, NORMOCEPHALIC Skin: Positive for: Normal Color, Warm, Dry Eye Exam: Positive for: Normal appearance Neck: Positive for: Normal, Painless ROM Cardiovascular/Chest: Positive for: Regular Rate, Rhythm. Negative for: Murmur Respiratory: Positive for: Normal Breath Sounds. Negative for: Wheezing, Respiratory Distress Gastrointestinal/Abdominal: Positive for: Soft, Tenderness (epigastric tenderness but no RUQ tenderness). Negative for: Other (Rodriguez's sign) Extremity: Positive for: Normal ROM Neurologic/Psych: Positive for: Alert, Oriented (x3). Negative for: Motor/ Sensory Deficits - Laboratory Results Result Diagrams: 04/24/18 12:40 04/24/18 12:40 - ECG O2 Sat by Pulse Oximetry: 97 (RA) Pulse Ox Interpretation: Normal - Progress Re-evaluation Time: 21:17 Condition: Re-examined, Improving,but remains with symptoms Medical Decision Making Medical Decision Making: Initial Impression: Abdominal pain and fever Differential: acute gastroenteritis, acute cholecystitis, pancreatitis, gastritis; r/o appendicitis Initial Plan: CMP Lipase ED urine dipstick CBC Pepcid 20mg IV Famotidine 20mg in 50mL IV Sodium chloride 1000mL IV Ondansetron 4mg IV US abdomen 17:48 US Abd FINDINGS: LIVER: Measures 17.6 cm in length. Normal echogenicity of the liver parenchyma. No mass. No intrahepatic bile duct dilatation. GALLBLADDER: Unremarkable. No gallstones. COMMON BILE DUCT: Measures 3 mm. No stones. No dilatation. PANCREAS: Unremarkable as visualized. No mass. No ductal dilatation. RIGHT KIDNEY: Measures 10.6 x 3.0 x 5.4 cm in length. Normal echogenicity. No calculus, mass, or hydronephrosis. AORTA: No aneurysmal dilatation. IVC: Unremarkable. OTHER FINDINGS: None . IMPRESSION: Unremarkable right upper quadrant ultrasound 19:20 Upon reevaluation, patient is feeling better and is comfortably resting in bed. White blood cell count is elevated at 15.9 and band neutrophils of 13. Lipase count is 408 which is elevated but does not meet criteria of acute pancreatitis. SBP is persistently in 90s and patient is orthostatic. 20:18 CT abd/pelvis FINDINGS: Artifacts: Motion artifact degrades image quality. Streak artifact degrades image quality. Lung bases: Heart size is at the upper limits of normal. There is a small hiatal hernia. There is atelectasis at the lung bases. ABDOMEN: Liver: There is fatty infiltration of the liver. The liver is mildly enlarged Gallbladder and bile ducts: unremarkable Pancreas: Pancreas is mildly atrophic. Spleen: unremarkable Adrenals: unremarkable Kidneys and ureters: There is a 4 cm left renal cyst.Kidneys and ureters are otherwise unremarkable. Stomach and bowel: Stomach is partially distended with an air-fluid level. Rotation is normal. Small bowel is mildly distended. There are air-fluid levels in the small bowel.There is fecalization of the distal ileum. Ileocecal region is otherwise unremarkable. Appendix is unremarkable. There is moderate stool and air throughout the colon. PELVIS: Appendix: See stomach and bowel Bladder: Bladder is distended. Reproductive: Seminal vesicles and prostate are unremarkable. ABDOMEN and PELVIS: Intraperitoneal space: There is no free air or free fluid. Bones/joints: There are degenerative changes in the osseus structures. There is a degenerative convex left lumbar curve. Soft tissues: There is a small fat containing left inguinal hernia Vasculature: Vascular structures are unremarkable. There are multiple phleboliths. Lymph nodes: There is no pathologic adenopathy. IMPRESSION: Mildly enlarged fatty liver, no acute solid visceral abnormality; possible ileus, no obstruction Additional nonemergent findings as described above. 21:36 Dr. Sanchez consulted for admission to [facility] surgery for persistent hypotension and orthostatic hypotension, dehydration, and sepsis. Scribe Attestation: Documented by Erwin Noyola acting as a scribe for Chris Tejeda MD. Provider Scribe Attestation: All medical record entries made by the Scribe were at my direction and personally dictated by me. I have reviewed the chart and agree that the record accurately reflects my personal performance of the history, physical exam, medical decision making, and the department course for this patient. I have also personally directed, reviewed, and agree with the discharge instructions and disposition. Disposition - Clinical Impression Clinical Impression: Abdominal pain, Enterocolitis, Sepsis - Patient ED Disposition Is Patient to be Admitted: Yes Discussed With : Clive Sanchez Doctor Will See Patient In The: Hospital Counseled Patient/Family Regarding: Studies Performed, Diagnosis - Disposition Disposition Time: 21:18 Condition: FAIR - Pt Status Changed To: Hospital Disposition Of: Inpatient - Admit Certification Admit to Inpatient:: After my assessment, the patient will require hospitalization for at least two midnights. This is because of the severity of symptoms shown, intensity of services needed, and/or the medical risk in this patient being treated as an outpatient. - POA Present On Arrival: None
[2018-04-23 16:56] LABS: ALB/GLOB RATIO 1.2 (1.0-2.1); ALBUMIN 4.1 g/dL (3.5-5.0); ALT/SGPT 31 U/L (21-72); AST/SGOT 32 U/L (17-59); BLOOD UREA NITROGEN 15 mg/dl (9-20); CALCIUM 8.9 mg/dL (8.4-10.2); GFR AFRICAN-AMERICAN > 60; GFR NON-AFRICAN AMERICAN > 60; LIPASE 408 U/L (23-300)
--- NOTE | 2018-04-23 17:50 | US ---
HISTORY: epigastric pain COMPARISON: None. TECHNIQUE: Sonographic evaluation of the right upper quadrant of the abdomen. FINDINGS: LIVER: Measures 17.6 cm in length. Normal echogenicity of the liver parenchyma. No mass. No intrahepatic bile duct dilatation. GALLBLADDER: Unremarkable. No gallstones. COMMON BILE DUCT: Measures 3 mm. No stones. No dilatation. PANCREAS: Unremarkable as visualized. No mass. No ductal dilatation. RIGHT KIDNEY: Measures 10.6 x 3.0 x 5.4 cm in length. Normal echogenicity. No calculus, mass, or hydronephrosis. AORTA: No aneurysmal dilatation. IVC: Unremarkable. OTHER FINDINGS: None . IMPRESSION: Unremarkable right upper quadrant ultrasound
[2018-04-23 18:53] LABS: ANISOCYTOSIS SLIGHT; BANDS 13 % (0-2); LARGE PLATELETS PRESENT; LYMPHOCYTE 3 % (20-50); MONOCYTE 3 % (0-10); NEUTROPHIL 81 % (42-75); PLATELET ESTIMATE NORMAL (NORMAL); TOTAL CELLS COUNTED 100
[2018-04-23] MEDS ORDERED: Iohexol 300 100 ML IJ ONE (18:58)
[2018-04-23] MEDS ORDERED: Sodium Chloride 0.9% 50 ML IV ONE (18:58)
--- NOTE | 2018-04-23 20:18 | CT ---
EXAM: CT Abdomen and Pelvis With Intravenous Contrast EXAM DATE/TIME: 04/23/2018 6:30 PM CLINICAL HISTORY: 42 years old, male; Pain; Abdominal pain TECHNIQUE: Axial computed tomography images of the abdomen and pelvis with intravenous contrast. All CT scans at this facility use one or more dose reduction techniques, viz.: automated exposure control; ma/kV adjustment per patient size (including targeted exams where dose is matched to indication; i.e. head); or iterative reconstruction technique. Coronal and sagittal reformatted images were created and reviewed. CONTRAST: 96 mL of omnipaque administered intravenously. COMPARISON: US - ABDOMEN LIMITED 2018-04-23 17:01 FINDINGS: Artifacts: Motion artifact degrades image quality. Streak artifact degrades image quality. Lung bases: Heart size is at the upper limits of normal. There is a small hiatal hernia. There is atelectasis at the lung bases. ABDOMEN: Liver: There is fatty infiltration of the liver. The liver is mildly enlarged Gallbladder and bile ducts: unremarkable Pancreas: Pancreas is mildly atrophic. Spleen: unremarkable Adrenals: unremarkable Kidneys and ureters: There is a 4 cm left renal cyst.Kidneys and ureters are otherwise unremarkable. Stomach and bowel: Stomach is partially distended with an air-fluid level. Rotation is normal. Small bowel is mildly distended. There are air-fluid levels in the small bowel.There is fecalization of the distal ileum. Ileocecal region is otherwise unremarkable. Appendix is unremarkable. There is moderate stool and air throughout the colon. PELVIS: Appendix: See stomach and bowel Bladder: Bladder is distended. Reproductive: Seminal vesicles and prostate are unremarkable. ABDOMEN and PELVIS: Intraperitoneal space: There is no free air or free fluid. Bones/joints: There are degenerative changes in the osseus structures. There is a degenerative convex left lumbar curve. Soft tissues: There is a small fat containing left inguinal hernia Vasculature: Vascular structures are unremarkable. There are multiple phleboliths. Lymph nodes: There is no pathologic adenopathy. IMPRESSION: Mildly enlarged fatty liver, no acute solid visceral abnormality; possible ileus, no obstruction Additional nonemergent findings as described above.
[2018-04-23] MEDS ORDERED: Ciprofloxacin 400mg/200ml D5W 400 MG/200 ML BAG IVPB STA (21:36)
[2018-04-23] MEDS ORDERED: metroNIDAZOLE 500mg/100ml NS 100 ML IVPB STA (21:37)
[2018-04-24] MEDS ORDERED: Ciprofloxacin 400mg/200ml D5W 400 MG/200 ML BAG IVPB ONE (00:06)
[2018-04-24 01:24] LABS: VENOUS BLOOD GAS BASE EXCESS -1.1 mmol/L (0.0-2.0); VENOUS BLOOD GAS PCO2 55 mmHg (40-60); VENOUS BLOOD GAS PO2 20 mm/Hg (30-55); VENOUS BLOOD PH 7.29 (7.32-7.43)
[2018-04-24] MEDS: Ciprofloxacin 400mg/200ml D5W 400 MG/200 ML BAG IVPB SCH ×2 (09:35→15:42)
[2018-04-24] MEDS: Dextrose 5%/Lactated Ringer's 1,000 ML IV SCH ×2 (09:35→15:46)
[2018-04-24] MEDS ORDERED: Sodium Chloride 0.9% 250 ML IV ONE ×2 (12:01→12:38)
[2018-04-24 12:48] LABS: HEMOGLOBIN 13.9 g/dL (12.0-18.0); MEAN CELL VOLUME 93.9 fl (80.0-94.0); MEAN CORPUSCULAR HEMOGLOBIN 31.2 pg (27.0-31.0); MEAN CORPUSCULAR HGB CONC 33.3 g/dL (33.0-37.0); RBC 4.46 Mil/uL (4.40-5.90); RED CELL DISTRIBUTION WIDTH 15.2 % (11.5-14.5); WHITE BLOOD COUNT 6.1 K/uL (4.8-10.8)
[2018-04-24 13:13] LABS: ALB/GLOB RATIO 1.1 (1.0-2.1); ALBUMIN 3.7 g/dL (3.5-5.0); ALT/SGPT 148 U/L (21-72); AST/SGOT 95 U/L (17-59); BLOOD UREA NITROGEN 9 mg/dl (9-20); CALCIUM 8.6 mg/dL (8.4-10.2); GFR AFRICAN-AMERICAN > 60; GFR NON-AFRICAN AMERICAN > 60
--- NOTE | 2018-04-24 15:39 | CP.PCM.HP ---
History of Present Illness - History of Present Illness History of Present Illness: This is a 42 y/o male admitted for diearrhea and abd pain. Past Patient History - Past Medical History & Family History Past Medical History?: Yes - Past Social History Smoking Status: Never Smoked - CARDIAC Hx Cardiac Disorders: Yes Hx Hypercholesterolemia: Yes - PULMONARY Hx Respiratory Disorders: Yes - NEUROLOGICAL Hx Neurological Disorder: Yes - HEENT Hx HEENT Problems: No - RENAL Hx Chronic Kidney Disease: No - ENDOCRINE/METABOLIC Hx Endocrine Disorders: Yes - HEMATOLOGICAL/ONCOLOGICAL Hx Blood Disorders: Yes Hx AIDS: No Hx Anemia: Yes Hx Human Immunodeficiency Virus (HIV): No - INTEGUMENTARY Hx Dermatological Problems: No - MUSCULOSKELETAL/RHEUMATOLOGICAL Hx Musculoskeletal Disorders: Yes Hx Falls: Yes - GASTROINTESTINAL Hx Gastrointestinal Disorders: Yes Hx Constipation: Yes - GENITOURINARY/GYNECOLOGICAL Hx Genitourinary Disorders: No - PSYCHIATRIC Hx Substance Use: No - SURGICAL HISTORY Hx Surgeries: No - ANESTHESIA Hx Anesthesia: No Hx Anesthesia Reactions: No Hx Malignant Hyperthermia: No Has any member of the family had a problem w/ anesthesia?: No Meds Home Medications: Home Medication List Medication Instructions Recorded Confirmed Type Ondansetron ODT [Zofran ODT] 4 mg PO Q8 PRN #12 odt 04/23/18 Rx Allergies/Adverse Reactions: Allergies Allergy/AdvReac Type Severity Reaction Status Date / Time No Known Allergies Allergy Verified 10/31/17 13:53 Results - Vital Signs Recent Vital Signs: Last Vital Signs Temp 97.5 F L 04/24/18 12:36 Pulse 63 04/24/18 12:36 Resp 18 04/24/18 12:36 BP 117/64 04/24/18 13:25 Pulse Ox 97 04/24/18 12:36 - Labs Result Diagrams: 04/24/18 12:40 04/24/18 12:40 Labs: Laboratory Results - last 24 hr 04/23/18 04/23/18 04/23/18 01:17 16:43 16:43 WBC 15.9 H RBC 4.68 Hgb 14.6 Hct 43.4 MCV 92.6 D MCH 31.1 H MCHC 33.6 RDW 14.6 H Plt Count 257 MPV 8.6 Neut % (Auto) 95.0 H Lymph % (Auto) 2.0 L Cass % (Auto) 2.7 Eos % (Auto) 0.0 Baso % (Auto) 0.3 Neut # (Auto) 15.1 H Lymph # (Auto) 0.3 L Cass # (Auto) 0.4 Eos # (Auto) 0.0 Baso # (Auto) 0.0 Neutrophils % (Manual) 81 H Band Neutrophils % 13 H* Lymphocytes % (Manual) 3 L Monocytes % (Manual) 3 Platelet Estimate Normal Large Platelets Present Anisocytosis (manual) Slight pO2 20 L VBG pH 7.29 L VBG pCO2 55 VBG HCO3 22.1 VBG Total CO2 28.1 H VBG O2 Sat (Calc) 35.5 L VBG Base Excess -1.1 L VBG Potassium 3.4 L Sodium 137.0 136 Chloride 105.0 100 Glucose 88 Lactate 1.0 FiO2 21.0 Potassium 3.5 L Carbon Dioxide 20 L Anion Gap 20 BUN 15 Creatinine 0.8 Est GFR ( Amer) > 60 Est GFR (Non-Af Amer) > 60 Random Glucose 98 Calcium 8.9 Total Bilirubin 0.7 AST 32 ALT 31 Alkaline Phosphatase 54 Total Protein 7.4 Albumin 4.1 Globulin 3.3 Albumin/Globulin Ratio 1.2 Lipase 408 H TSH 3rd Generation Venous Blood Potassium 3.4 L 04/24/18 04/24/18 12:40 12:40 WBC 6.1 D RBC 4.46 Hgb 13.9 Hct 41.8 MCV 93.9 MCH 31.2 H MCHC 33.3 RDW 15.2 H Plt Count 248 MPV Neut % (Auto) Lymph % (Auto) Cass % (Auto) Eos % (Auto) Baso % (Auto) Neut # (Auto) Lymph # (Auto) Cass # (Auto) Eos # (Auto) Baso # (Auto) Neutrophils % (Manual) Band Neutrophils % Lymphocytes % (Manual) Monocytes % (Manual) Platelet Estimate Large Platelets Anisocytosis (manual) pO2 VBG pH VBG pCO2 VBG HCO3 VBG Total CO2 VBG O2 Sat (Calc) VBG Base Excess VBG Potassium Sodium 144 Chloride 107 Glucose Lactate FiO2 Potassium 3.8 Carbon Dioxide 25 Anion Gap 16 BUN 9 Creatinine 0.8 Est GFR ( Amer) > 60 Est GFR (Non-Af Amer) > 60 Random Glucose 71 L Calcium 8.6 Total Bilirubin 0.5 AST 95 H D ALT 148 H D Alkaline Phosphatase 48 Total Protein 7.0 Albumin 3.7 Globulin 3.3 Albumin/Globulin Ratio 1.1 Lipase TSH 3rd Generation 0.07 L Venous Blood Potassium
[2018-04-24 16:32] VITALS: BP 112/71; PULSE 70; RESP 16; TEMP 97.9; O2SAT 98
== END 2018-04-24 17:00 | disposition home or self-care (01) ==
LOC: H.ER 15:28 → H.ERHOLD 22:12 → H.TEL 04-24 03:12
PROVIDERS: ADMIT Family Medicine; ATTEND Family Medicine
DX: R19.7 Diarrhea, unspecified (principal); R10.9 Unspecified abdominal pain; E78.00 Pure hypercholesterolemia, unspecified; Q90.9 Down syndrome, unspecified
CPT/HCPCS: 36415; 74177; 76705; 80053; 82803; 83690; 84443; 85025; 85027; 87040; 96360; 96365; 99285; C9113; G0378; J0744; J2405; J7030; J7040; J7120; Q9967